=== PATIENT | female | born 1940 | race Caucasian/White ===

== ENCOUNTER 2022-06-10 12:45 | Inpatient (IN) ==
[2022-06-10] MEDS ORDERED: SODIUM CHLORIDE 0.9% 1000ML 1,000 ML IV ONE (13:27)
[2022-06-10] MEDS ORDERED: ONDANSETRON INJ 2 MG/ML 2 ML VIAL IV STA (13:27)
[2022-06-10] MEDS ORDERED: dexAMETHasone**PF** 10 MG/ML VIAL IV ONE (13:27)
--- NOTE | 2022-06-10 13:33 | Emergency Department Note ---
Impression & Plan COVID-19, Hypoxia, Generalized weakness ED Provider Note Name: JESUS PENN Age: 81 Sex: F Arrives Via: Ambulance Informant: Patient, EMS, son ED Provider: Braden Robles MD Chief Complaint: Weakness Impression: As per impressions above Medical Decision Makin-year-old female with a history of hypertension, dyslipidemia, anxiety/depression arrives for evaluation of worsening weakness and fatigue over the last 24 hours after being ill with COVID for the last 5 on arrival patient is mildly hypoxic with sats 90-92% on room air. Days. She gets significantly winded just with exertion. Patient notes weakness throughout the night and stumbling when trying to get up due to feeling so weak. She has no focal neurologic deficits, she has no headache, she has no altered mental status and I feel emergent neuroimaging not indicated. EKG without acute ischemia. Chest x- ray does not show significant abnormality. Labs are fortunately unremarkable Besides a mildly elevated D-dimer which is within her age range and would be expected be slightly elevated in the setting of COVID-19 which is positive. Patient was given IV dexamethasone given her hypoxia. Due to the hypoxia and positive COVID testing she will need hospitalization at this time and thus hospitalist consulted. We will hold off and defer CTA of chest to them given the D-dimer is within normal range for age. Prior Medical Record and Triage/Nursing Notes reviewed by Me Differentials:Reactive airway disease, pneumonia, pneumothorax, COPD, CHF, infections, cardiac ischemia, pulmonary embolism, musculoskeletal, gastrointestinal, as well as other pathologies. Vital Signs: reviewed and remarkable for hypoxia Interventions: Nasal cannula O2, Decadron 10 mg IV Labs:Reviewed and remarkable for mildly elevated D-dimer within patient's age range, positive COVID testing Imagin view chest x-ray no acute findings as per radiologist EKG:Indication shortness of breath. Sinus rhythm with sinus arrhythmia at 60 bpm with a QTC of 452. When compared to EKG from 01/09/2021 this is similar. There is no significant ectopy nor ischemia appreciated Consults:Patrice hospitalist Plan: Disposition: hospitalization Condition: Good History of Present Illness:81-year-old female arrives for evaluation of illness. Patient has been sick since essentially Tuesday/Tuesday. Notes she started feeling better yesterday but then overnight rapidly worsening. Patient states that initially symptoms included mild headaches, myalgias, chills, mildly productive cough. They are now progressed to include some shortness of breath diffuse generalized weakness and nausea and vomiting. She denies any specific abdominal pain, chest pain, back pain. She has no swelling in her legs or calves. She denies any syncope. She states the headache is minor and does not bother her very much right now. She has not been using any medications for this. Nothing makes it better or worse. She does note that last night she was so confused after getting up that she was walking into [place]. She denies any focal neurological deficits. She states the confusion has resolved. ROS: See above HPI for pertinent positives & negatives. A total of 10 systems reviewed and were otherwise negative. Past Medical History:Hypertension, dyslipidemia, anxiety/depression, PVCs Past Surgical History:Parotid surgery Family History:Noncontributory Social History:Retired lives at home non-smoker Home Medications:See Below Allergies:Sulfa, sertraline, venlafaxine, citalopram, nitrofurantoin Vitals:Blood Pressure: 197/80, Pulse 66, RR 16, T 36.9C, O2 92% on RA Physical Exam: GENERAL: Patient is tired/unwell appearing and in mild distress. EYES: No scleral icterus, unremarkable pupils. ENT: Mucous membranes dry, no nasal congestion. NECK: No masses appreciated, nomeningismus, trachea is midline. RESPIRATORY: Dyspnea/tachypnea with diffuse mild crackles no wheezing CARDIOVASCULAR: Regular rate rhythm no murmurs GASTROINTESTINAL: Abdomen soft, non-tender, no peritonitis.Bowel sounds positive.No masses appreciated. BACK: No midline tenderness, no CVA tenderness EXTREMITIES: Normal motion all extremities, no cyanosis, no edema. NEUROLOGIC: Alert and oriented, no acute motor or sensory deficits, no focal weakness, cranial nerves grossly intact. SKIN: No rash, no jaundice, no diaphoresis. PSYCH: Appropriate GCS: 15 ED Course: Times/Reassessments: Patient breathing comfortably on nasal cannula O2 and does feel significantly better. She does have some difficulty with ambulation when off oxygen. Braden Robles MD Past Med/Surg History Medical History (Updated 06/12/22 @ 09:52 by Braden Robles MD) Anxiety Arthritis COVID-19 HTN (hypertension) Hyperlipidemia Mitral valve disorder Surgical History Hx of parotidectomy Family History Other Myocardial infarction Social History Smoking Status: Never smoker Hx Alcohol Use: No Hx Substance Use: No Preferred Language: Yoruba Communication Ability: Effective Skoog Operator Required: No Beliefs That Will Affect Care: Adventist marital status: Current Living Situation: Alone current occupational status: retired Feels Safe at Home: Yes Safety Concerns: Feels Safe At This Time Assistive Devices: None Allergies Allergies Allergy/AdvReac Type Severity Reaction Status Date / Time Sulfa (Sulfonamide Allergy Intermediate "SULFA Verified 06/10/22 16:24 Antibiotics) DRUGS": RASH HOT sertraline AdvReac Severe HEART Verified 06/10/22 16:24 PALPITATIONS venlafaxine AdvReac Severe HEART Verified 06/10/22 16:24 PALPITATIONS citalopram AdvReac Intermediate HALLUCINATI Verified 06/10/22 16:24 ONS nitrofurantoin AdvReac Mild N/V Verified 06/10/22 16:24 Home Meds Home Medications Medication Instructions Recorded Confirmed atorvastatin 10 mg tablet 10 mg PO HS 08/22/18 06/10/22 calcium carbonate 500 mg-vitamin 1 tab PO BID 08/22/18 06/10/22 D3 5 mcg (200 unit) tablet (Calcium 500 + D) fexofenadine 180 mg tablet 180 mg PO DAILY 08/22/18 06/10/22 (Leticia Allergy) hydrochlorothiazide 25 mg tablet 6.25 mg PO DAILY 08/22/18 06/10/22 lorazepam 0.5 mg tablet 0.25 - 0.5 mg PO BID PRN Anxiety 08/22/18 06/10/22 omega [id number]-[id number]-fish oil 1,000 mg 1,000 mg PO DAILY 08/22/18 06/10/22 (120 mg-180 mg) capsule (Fish Oil) propranolol 60 mg capsule,24 60 mg PO DAILY 08/22/18 06/10/22 hr,extended release conjugated estrogens 0.625 mg/gram 1 applic vaginal 2XWK 01/09/21 06/10/22 vaginal cream (Premarin) lisinopril 2.5 mg tablet 1.25 mg PO DAILY 01/09/21 06/10/22 omeprazole 40 mg capsule,delayed 40 mg PO DAILY 06/10/22 06/10/22 release Results & Data (ED) Vital Signs Vital Signs - 24 hr 06/10/22 12:59 06/10/22 13:20 Temperature 36.9 C Temperature Source Oral Pulse Rate 66 Pulse Rhythm Regular Pulse Strength Normal Respiratory Rate 16 Respiratory Effort / Characteristics Non-Labored Spontaneous Respiratory Depth Normal Respiratory Pattern Regular Blood Pressure 197/80 H Blood Pressure Mean 119 Pulse Oximetry 94 92 Oxygen Delivery Method Room Air Room Air Sepsis Recent Fever Within 48 Hours No Sepsis New/Unexplained Change in Mental Status N/A Sepsis Action Taken by Nursing No Action Required Laboratory Data Result diagrams: 06/12/22 06:40 06/12/22 06:40 Lab Results 06/10/22 06/10/22 06/10/22 Range/Units 14:00 14:00 14:00 WBC 7.39 (4.8-10.8) K/ul RBC 4.61 (3.93-5.22) M/uL Hgb 13.4 (12.0-16.0) g/dl Hct 40.2 (34.1-44.9) % MCV 87.2 (80.0-100.0) fL MCH 29.1 (25.0-34.0) pg MCHC 33.3 (32.0-36.0) g/dL RDW Std Deviation 45.3 (36.4-46.3) fL RDW Coeff of Timmy 14.2 (11.5-14.5) % Plt Count 186 (130-400) K/uL MPV 10.5 (9.4-12.3) fL Immature Gran % (Auto) 0.3 % Neut % (Auto) 74.4 % Lymph % (Auto) 16.4 % [place] % (Auto) 8.5 % Eos % (Auto) 0.1 % Baso % (Auto) 0.3 % Neut # (Auto) 5.50 (1.4-6.5) K/uL Lymph # (Auto) 1.21 (1.2-3.4) K/uL [place] # (Auto) 0.63 (0.24-0.82) K/uL Eos # (Auto) 0.01 (0-0.50) K/uL Baso # (Auto) 0.02 (0-0.2) K/uL Immature Gran # (Auto) 0.02 (0.00-0.02) K/uL D-Dimer 710 H* (0-500) ug/L FEU Sodium (136-145) mmol/L Potassium (3.5-5.1) mmol/L Chloride (98-107) mmol/L Carbon Dioxide (21-32) mmol/L Anion Gap (3-11) BUN (6-23) mg/dl Creatinine (0.6-1.2) mg/dl Est Cr Clr Drug Dosing ml/min Est GFR ( Amer) ml/min Est GFR (Non-Af Amer) ml/min BUN/Creatinine Ratio (10-20) Glucose (70-99(Fasting)) mg/dl Lactate 0.7 (0.4-2.0) mmol/L Calcium (8.5-10.1) mg/dl Magnesium (1.7-2.4) mg/dl Total Bilirubin (0.2-1.0) mg/dl Direct Bilirubin (0-0.2) mg/dl AST (13-39) U/L ALT (7-52) U/L Alkaline Phosphatase (34-104) U/L Troponin I High Sens (0-14) pg/ml Total Protein (6.0-8.3) gm/dl Albumin (3.4-5.0) gm/dl Lipase (11-82) U/L Procalcitonin (0-0.5) ng/ml Urine Color Urine Appearance (Clear) Urine pH (4.5-7.5) Ur Specific [place] (1.000-1.030) Urine Protein (Negative) Urine Glucose (UA) (Negative) Urine Ketones (Negative) Urine Blood (Negative) Urine Nitrite (Negative) Urine Bilirubin (Negative) Urine Urobilinogen (Negative) Ur Leukocyte Esterase (Negative) SARS-CoV-2 (PCR) (Negative) 06/10/22 06/10/22 06/10/22 Range/Units 14:00 14:00 14:00 WBC (4.8-10.8) K/ul RBC (3.93-5.22) M/uL Hgb (12.0-16.0) g/dl Hct (34.1-44.9) % MCV (80.0-100.0) fL MCH (25.0-34.0) pg MCHC (32.0-36.0) g/dL RDW Std Deviation (36.4-46.3) fL RDW Coeff of Timmy (11.5-14.5) % Plt Count (130-400) K/uL MPV (9.4-12.3) fL Immature Gran % (Auto) % Neut % (Auto) % Lymph % (Auto) % [place] % (Auto) % Eos % (Auto) % Baso % (Auto) % Neut # (Auto) (1.4-6.5) K/uL Lymph # (Auto) (1.2-3.4) K/uL [place] # (Auto) (0.24-0.82) K/uL Eos # (Auto) (0-0.50) K/uL Baso # (Auto) (0-0.2) K/uL Immature Gran # (Auto) (0.00-0.02) K/uL D-Dimer (0-500) ug/L FEU Sodium 133 L (136-145) mmol/L Potassium 3.6 (3.5-5.1) mmol/L Chloride 98 (98-107) mmol/L Carbon Dioxide 28 (21-32) mmol/L Anion Gap 7 (3-11) BUN 10 (6-23) mg/dl Creatinine 0.64 (0.6-1.2) mg/dl Est Cr Clr Drug Dosing 74.2 ml/min Est GFR ( Amer) 98.4 ml/min Est GFR (Non-Af Amer) 84.9 ml/min BUN/Creatinine Ratio 15.6 (10-20) Glucose 107 H (70-99(Fasting)) mg/dl Lactate (0.4-2.0) mmol/L Calcium 9.3 (8.5-10.1) mg/dl Magnesium 1.9 (1.7-2.4) mg/dl Total Bilirubin 0.4 (0.2-1.0) mg/dl Direct Bilirubin 0.0 (0-0.2) mg/dl AST 18 (13-39) U/L ALT 13 (7-52) U/L Alkaline Phosphatase 75 (34-104) U/L Troponin I High Sens 7.3 (0-14) pg/ml Total Protein 7.5 (6.0-8.3) gm/dl Albumin 4.4 (3.4-5.0) gm/dl Lipase 21 (11-82) U/L Procalcitonin < 0.05 (0-0.5) ng/ml Urine Color Urine Appearance (Clear) Urine pH (4.5-7.5) Ur Specific [place] (1.000-1.030) Urine Protein (Negative) Urine Glucose (UA) (Negative) Urine Ketones (Negative) Urine Blood (Negative) Urine Nitrite (Negative) Urine Bilirubin (Negative) Urine Urobilinogen (Negative) Ur Leukocyte Esterase (Negative) SARS-CoV-2 (PCR) POSITIVE A* (Negative) 06/10/22 Range/Units 15:30 WBC (4.8-10.8) K/ul RBC (3.93-5.22) M/uL Hgb (12.0-16.0) g/dl Hct (34.1-44.9) % MCV (80.0-100.0) fL MCH (25.0-34.0) pg MCHC (32.0-36.0) g/dL RDW Std Deviation (36.4-46.3) fL RDW Coeff of Timmy (11.5-14.5) % Plt Count (130-400) K/uL MPV (9.4-12.3) fL Immature Gran % (Auto) % Neut % (Auto) % Lymph % (Auto) % [place] % (Auto) % Eos % (Auto) % Baso % (Auto) % Neut # (Auto) (1.4-6.5) K/uL Lymph # (Auto) (1.2-3.4) K/uL [place] # (Auto) (0.24-0.82) K/uL Eos # (Auto) (0-0.50) K/uL Baso # (Auto) (0-0.2) K/uL Immature Gran # (Auto) (0.00-0.02) K/uL D-Dimer (0-500) ug/L FEU Sodium (136-145) mmol/L Potassium (3.5-5.1) mmol/L Chloride (98-107) mmol/L Carbon Dioxide (21-32) mmol/L Anion Gap (3-11) BUN (6-23) mg/dl Creatinine (0.6-1.2) mg/dl Est Cr Clr Drug Dosing ml/min Est GFR ( Amer) ml/min Est GFR (Non-Af Amer) ml/min BUN/Creatinine Ratio (10-20) Glucose (70-99(Fasting)) mg/dl Lactate (0.4-2.0) mmol/L Calcium (8.5-10.1) mg/dl Magnesium (1.7-2.4) mg/dl Total Bilirubin (0.2-1.0) mg/dl Direct Bilirubin (0-0.2) mg/dl AST (13-39) U/L ALT (7-52) U/L Alkaline Phosphatase (34-104) U/L Troponin I High Sens (0-14) pg/ml Total Protein (6.0-8.3) gm/dl Albumin (3.4-5.0) gm/dl Lipase (11-82) U/L Procalcitonin (0-0.5) ng/ml Urine Color Yellow Urine Appearance Clear (Clear) Urine pH 7.5 (4.5-7.5) Ur Specific [place] 1.006 (1.000-1.030) Urine Protein Negative (Negative) Urine Glucose (UA) Negative (Negative) Urine Ketones Negative (Negative) Urine Blood Negative (Negative) Urine Nitrite Negative (Negative) Urine Bilirubin Negative (Negative) Urine Urobilinogen Negative (Negative) Ur Leukocyte Esterase Negative (Negative) SARS-CoV-2 (PCR) (Negative) Administered Medications Atorvastatin Calcium (Atorvastatin 10 Mg Tab) 10 mg PO HS JACEK Stop: 07/11/22 20:59 Last Admin: 06/11/22 20:17 Dose: 10 mg Documented By: PHILIP Fexofenadine HCl (Fexofenadine Hcl 180 Mg Tab) 180 mg PO QAM JACEK Stop: 07/11/22 11:59 Last Admin: 06/12/22 08:19 Dose: 180 mg Documented By: Admin: 06/11/22 13:58 Dose: 180 mg Documented By: DTT Guaifenesin (Guaifenesin 600 Mg Tabcr) 1,200 mg PO Q12 JACEK Stop: 07/10/22 20:59 Last Admin: 06/12/22 08:20 Dose: Not Given Documented By: Admin: 06/11/22 20:17 Dose: 1,200 mg Documented By: Admin: 06/11/22 08:36 Dose: 1,200 mg Documented By: Admin: 06/10/22 22:13 Dose: 1,200 mg Documented By: RD Hydrochlorothiazide (Hydrochlorothiazide 25 Mg Tab) 6.25 mg PO [facility] Stop: 07/12/22 08:59 Last Admin: 06/12/22 08:32 Dose: 6.25 mg Documented By: DTT Lisinopril (Lisinopril 2.5 Mg Tab) 1.25 mg PO [facility] Stop: 07/11/22 11:44 Last Admin: 06/12/22 08:19 Dose: 1.25 mg Documented By: Admin: 06/11/22 13:58 Dose: 1.25 mg Documented By: CRUZ Multivitamins/Minerals (Calcium 600mg + Vit D 400 Iu Tab) 1 tab PO BID [facility] Stop: 07/11/22 20:59 Last Admin: 06/11/22 20:17 Dose: 1 tab Documented By: PHILIP Pantoprazole Sodium (Pantoprazole 40 Mg Tab) 40 mg PO [facility] Stop: 07/11/22 11:59 Last Admin: 06/12/22 08:19 Dose: 40 mg Documented By: Admin: 06/11/22 13:57 Dose: 40 mg Documented By: CRUZ Propranolol HCl (Propranolol Hcl 60 Mg [place]) 60 mg PO [facility] Stop: 07/12/22 08:59 Last Admin: 06/12/22 08:19 Dose: 60 mg Documented By: CRUZ Discontinued Medications Amlodipine Besylate (Amlodipine Besylate 5 Mg Tab) 5 mg PO NOW ONE Stop: 06/11/22 18:55 Last Admin: 06/11/22 20:16 Dose: 5 mg Documented By: PHILIP Dexamethasone Sodium Phosphate (DexamethasonePf 10 Mg/Ml Vial) 10 mg IV NOW ONE Stop: 06/10/22 13:28 Last Admin: 06/10/22 13:56 Dose: 10 mg Documented By: CHANDRAKANT Sodium Chloride (Nss 1000ml) 1,000 mls @ 999 mls/hr IV .Q1H1M ONE Stop: 06/10/22 14:27 Last Infusion: 06/10/22 15:30 Dose: 0 mls/hr Documented By: Admin: 06/10/22 13:55 Dose: 999 mls/hr Documented By: CHANDRAKANT Ioversol (Optiray 300 500ml) 112 ml IV ONCE ONE Stop: 06/10/22 18:10 Last Admin: 06/10/22 18:13 Dose: 112 ml Documented By: RACHEL Ondansetron HCl (Ondansetron Inj 2 Mg/Ml 2 Ml Vial) 4 mg IV NOW STA Stop: 06/10/22 13:28 Last Admin: 06/10/22 13:56 Dose: 4 mg Documented By: CHANDRAKANT Propranolol HCl (Propranolol Hcl 60 Mg [place]) 60 mg PO QAM [facility] Stop: 07/11/22 11:44 Last Admin: 06/11/22 19:21 Dose: Not Given Documented By: PHILIP Propranolol HCl (Propranolol Hcl 60 Mg [place]) 30 mg PO QAM [facility] Stop: 07/11/22 11:54 Last Admin: 06/11/22 13:59 Dose: Not Given Documented By: DTT Discharge Plan Visit Data Chief Complaint: Weakness Stated Complaint: COVID pos, weakness ED Provider: Braden Robles Discharge Problem: COVID-19, Hypoxia, Generalized weakness Patient Disposition: Admitted As Inpatient Discharge Instructions Interventions: ED Discharge Assessment Last Done: 06/10/22 19:28
[2022-06-10 14:18] LABS: Basophils # (auto) 0.02 K/uL (0-0.2); Basophils % (auto) 0.3 %; Eosinophils # (auto) 0.01 K/uL (0-0.50); Eosinophils % (auto) 0.1 %; Hematocrit (blood only) 40.2 % (34.1-44.9); Hemoglobin 13.4 g/dl (12.0-16.0); Immature Granulocytes # (auto) 0.02 K/uL (0.00-0.02); Immature Granulocytes % (auto) 0.3 %; Lymphocytes # (auto) 1.21 K/uL (1.2-3.4); Lymphocytes % (auto) 16.4 %; Mean Corpuscular Hemoglobin 29.1 pg (25.0-34.0); Mean Corpuscular Hgb Conc 33.3 g/dL (32.0-36.0); Mean Corpuscular Volume 87.2 fL (80.0-100.0); Mean Platelet Volume 10.5 fL (9.4-12.3); Monocytes # (auto) 0.63 K/uL (0.24-0.82); Monocytes % (auto) 8.5 %; Neutrophils % (auto) 74.4 %; Platelet Count 186 K/uL (130-400); RDW Coefficient of Variation 14.2 % (11.5-14.5); RDW Standard Deviation 45.3 fL (36.4-46.3); Red Blood Count 4.61 M/uL (3.93-5.22); White Blood Count 7.39 K/ul (4.8-10.8)
[2022-06-10 14:30] LABS: D Dimer 710 ug/L FEU (0-500)
--- NOTE | 2022-06-10 14:33 | XRay Report ---
XR chest 1V portable CLINICAL HISTORY: weakness, nausea COMPARISON STUDY: Chest radiograph January 09, 2021. FINDINGS: Lung volumes are normal. No consolidation to suggest pneumonia. Linear retrocardiac opacity favors atelectasis. There is no pneumothorax or pleural effusion. Cardiac size is normal. Mediastina l contours are normal. There is no evidence for pulmonary edema. Left lateral chest/breast surgical c lips are incidentally noted. IMPRESSION: No acute cardiopulmonary findings. No change in appearance of the chest. ACT 112: Negative or not required by law. Electronically signed by: Contreras Porras M.D. 06/10/2022 2:32 PM
[2022-06-10 14:40] LABS: Albumin Level 4.4 gm/dl (3.4-5.0); BUN Creatinine Ratio 15.6 (10-20); Bilirubin,Total 0.4 mg/dl (0.2-1.0); Calcium 9.3 mg/dl (8.5-10.1); Creatinine Clr Calc Pharmacy 74.2 ml/min; Est GFR (African American) 98.4 ml/min; Est GFR (Non-African American) 84.9 ml/min; Magnesium 1.9 mg/dl (1.7-2.4); Potassium 3.6 mmol/L (3.5-5.1); Total Protein 7.5 gm/dl (6.0-8.3)
[2022-06-10 14:44] LABS: Troponin I High Sensitivity 7.3 pg/ml (0-14)
[2022-06-10 15:50] LABS: Appearance Urine Clear (Clear); Bilirubin Urine Negative (Negative); Blood Urine Negative (Negative); Color Urine Yellow; Glucose Urine UA Negative (Negative); Ketones Urine Negative (Negative); Leukocyte Esterase Urine Negative (Negative); Nitrite Urine Negative (Negative); Protein Urine Negative (Negative); Specific Gravity Urine 1.006 (1.000-1.030); Urobilinogen Urine Negative (Negative); pH Urine 7.5 (4.5-7.5)
--- NOTE | 2022-06-10 15:57 | History & Physical Report ---
Date of Service June 10, 2022 Assessment & Plan (1) COVID-19: (2) Hypertension: (3) Hyperlipidemia: (4) Anxiety and depression: Plan Ms.. Castillo is a 81 year old female who presented to the [facility] for 'illness'. Patient reports that she started feeling MYERS, malaise, sore throat, starting on Tuesday. She started to have dizziness and nausea that began yesterday. She felt like she was dehydrated and drank some Gatorade. This morning, she had to hold onto something to get herself to the bathroom. She reports also having decreased appetite. Patient denies MYERS, CP, palpitations, SOB, vomiting, diarrhea. She did have one episode of vomiting in the ED. Pt d- dimer was 770 in the ED. Patient has an additional PMH that includes: HTN, HLD, anxiety and depression. Patient will be admitted under medicine service for further evaluation and management. COVID-19: Vaccinated and received booster x1 Symptoms x5 days with some SOB Procalcitonin negative CRP ordered for AM; depending on results and progress; consider additional covid tx. Creatinine 0.64 Mucinex ordered Decadron 10 mg given in ED ISB ordered CXR negative; repeat in AM D-Dimer 710: CTA ordered HTN: Takes Lisinopril H/O Mitral Valve Prolapse: Stable; Continue Propanolol Does not follow with Cardiology Hyperlipidemia: Stable; Continue Atorvastatin Anxiety and Depression: Takes Lorazepam; continue PRN Disposition: PCP: Dr. Pitt Code Status: Full Code VTE Prophylaxis: Heparin SQ Contact: Malik son: [phone] [facility] Pt lives alone at home in a two story home with bedroom and bathroom access on one floor. History of Present Illness Chief Complaint: cough Primary Care Provider: Kassidy Pitt DO Ms. Castillo is a 81 year old female who presented to the [facility] for 'illness'. Patient reports that she started feeling MYERS, malaise, sore throat, starting on Tuesday. She started to have dizziness and nausea that began yesterday. She felt like she was dehydrated and drank some Gatorade. This morning, she had to hold onto something to get herself to the bathroom. She reports also having decreased appetite. Patient denies MYERS, CP, palpitations, SOB, vomiting, diarrhea. She did have one episode of vomiting in the ED. Pt d- dimer was 770 in the ED. Patient has an additional PMH that includes: HTN, HLD, anxiety and depression. Patient will be admitted under medicine service for further evaluation and management. Allergies Allergy/AdvReac Type Severity Reaction Status Date / Time Sulfa (Sulfonamide Allergy Intermediate "SULFA Verified 06/10/22 16:24 Antibiotics) DRUGS": RASH HOT sertraline AdvReac Severe HEART Verified 06/10/22 16:24 PALPITATIONS venlafaxine AdvReac Severe HEART Verified 06/10/22 16:24 PALPITATIONS citalopram AdvReac Intermediate HALLUCINATI Verified 06/10/22 16:24 ONS nitrofurantoin AdvReac Mild N/V Verified 06/10/22 16:24 Home Medications Medication Instructions Recorded Confirmed Type atorvastatin 10 mg tablet 10 mg PO HS 08/22/18 06/10/22 History calcium carbonate 500 mg-vitamin 1 tab PO BID 08/22/18 06/10/22 History D3 5 mcg (200 unit) tablet (Calcium 500 + D) fexofenadine 180 mg tablet 180 mg PO DAILY 08/22/18 06/10/22 History (Leticia Allergy) hydrochlorothiazide 25 mg tablet 6.25 mg PO DAILY 08/22/18 06/10/22 History lorazepam 0.5 mg tablet 0.25 - 0.5 mg PO BID PRN Anxiety 08/22/18 06/10/22 History omega 6-aiz-arc-fish oil 1,000 mg 1,000 mg PO DAILY 08/22/18 06/10/22 History (120 mg-180 mg) capsule (Fish Oil) propranolol 60 mg capsule,24 60 mg PO DAILY 08/22/18 06/10/22 History hr,extended release conjugated estrogens 0.625 mg/gram 1 applic vaginal 2XWK 01/09/21 06/10/22 History vaginal cream (Premarin) lisinopril 2.5 mg tablet 1.25 mg PO DAILY 01/09/21 06/10/22 History omeprazole 40 mg capsule,delayed 40 mg PO DAILY 06/10/22 06/10/22 History release Past Med/Surg History Medical History (Updated 06/10/22 @ 16:18 by CHEYANNE Wynn) Anxiety Arthritis COVID-19 HTN (hypertension) Hyperlipidemia Mitral valve disorder Surgical History Hx of parotidectomy Family History Other Myocardial infarction Social History Smoking Status: Never smoker Hx Alcohol Use: No Hx Substance Use: No Communication Ability: Effective Application Tester Required: No Beliefs That Will Affect Care: None marital status: Current Living Situation: Alone current occupational status: retired Feels Safe at Home: Yes Assistive Devices: None Review of Systems Review of Systems: Neuro: (-) Falls, trauma, slurred speech HEENT: (-) MYERS, dizziness, dysphagia, visual or auditory changes CV: (-) CP, palpitations, swelling Resp: (-) SOB GI: (-) appetite changes, N/V/D, bowel changes : (-) urinary changes Skin: (-) rashes Psych: (-) anxiety, depression Physical Exam Physical Exam: Neuro: AAOx4, PERRLA, no aphagia, memory changes, CNII-XII grossly intact HEENT: head normocephalic, moist mucus membranes CV: S1/S2, (-) M/G/R, (-) edema, cap refill < 3 seconds Resp: Lungs CTA in all santos. On RA GI: Abdomen S/NT/ND, Ax4 bowel sounds, (-) CVA tenderness Musculoskeletal: 5/5 B/L UE strength, 5/5 B/L LE strength. No gait disturbance Skin: (-) rashes , (-) erythema. Psych: euthymic mood Results & Data Results & Data ([facility]) Vital Signs (Past 12 Hours) Vital Signs Temp Pulse Resp BP Pulse Ox O2 Del Method O2 Flow Rate 06/10/22 14:11 92 Nasal Cannula 0 06/10/22 13:20 92 Room Air 06/10/22 12:59 36.9 C 66 16 197/80 H 94 Room Air Laboratory Results Short CBC 06/10/22 Range/Units 14:00 WBC 7.39 (4.8-10.8) K/ul Hgb 13.4 (12.0-16.0) g/dl Hct 40.2 (34.1-44.9) % Plt Count 186 (130-400) K/uL BMP 06/10/22 14:00 Sodium 133 L Potassium 3.6 Chloride 98 Carbon Dioxide 28 BUN 10 Creatinine 0.64 Glucose 107 H Calcium 9.3 Liver Function 06/10/22 Range/Units 14:00 Total Bilirubin 0.4 (0.2-1.0) mg/dl Direct Bilirubin 0.0 (0-0.2) mg/dl AST 18 (13-39) U/L ALT 13 (7-52) U/L Alkaline Phosphatase 75 (34-104) U/L Albumin 4.4 (3.4-5.0) gm/dl Urine 06/10/22 Range/Units 15:30 Urine Color Yellow Urine Appearance Clear (Clear) Urine pH 7.5 (4.5-7.5) Ur Specific [place] 1.006 (1.000-1.030) Urine Protein Negative (Negative) Urine Glucose (UA) Negative (Negative) Diagnostic Findings Chest X-Ray 06/10/22 13:28 XR chest 1V portable CLINICAL HISTORY: weakness, nausea COMPARISON STUDY: Chest radiograph January 09, 2021. FINDINGS: Lung volumes are normal. No consolidation to suggest pneumonia. Linear retrocardiac opacity favors atelectasis. There is no pneumothorax or pleural effusion. Cardiac size is normal. Mediastinal contours are normal. There is no evidence for pulmonary edema. Left lateral chest/breast surgical clips are incidentally noted. IMPRESSION: No acute cardiopulmonary findings. No change in appearance of the chest. ACT 112: Negative or not required by law. Electronically signed by: Contreras Porras M.D. 06/10/2022 2:32 PM Code Status & VTE Plan VTE Prophylaxis Plan VTE Prophylaxis will be ordered: Yes Supervising Physician Co-Signing Physician Notes Attending addendum: The patient was seen and examined in emergency room She has been complaining of epigastric discomfort nausea with vomiting, 1 epi sode of diarrhea in the morning and generalized weakness for a day or 2 Denies any fever and or chills, any shortness of breath, any chest pain and/or palpitation On examination Lying in bed comfortably Hemodynamically stable with blood pressure on the upper side at 152/80 Chestclear to auscultate bilaterally HeartS1-S2, regular Abdomenmildly tender epigastrium Extremitiesno edema CNSalert, awake and oriented x3 Her admission labs, EKG and imaging studies reviewed Noted to be COVID-positive with mild dehydration She has been COVID vaccinated with booster Received Decadron 10 mg and will continue Agree with assessment and plan as outlined above by Siomara Hallman (1) Hypertension Hypertension type: essential hypertension Qualified Code(s): I10 - Essential (primary) hypertension
--- NOTE | 2022-06-10 17:59 | Electrocardiogram Report ---
Test Reason : Blood Pressure : / mmHG Vent. Rate : 060 BPM Atrial Rate : 060 BPM P-R Int : 200 ms QRS Dur : 118 ms QT Int : 452 ms P-R-T Axes : 066 -19 015 degrees QTc Int : 452 ms Sinus rhythm with marked sinus arrhythmia Left ventricular hypertrophy with QRS widening and repolarization abnormality Abnormal ECG When compared with ECG of 09-JAN-2021 02:22, No significant change was found Confirmed by Abiodun Iglesias ([id number]) on 06/10/2022 5:59:03 PM Referred By: REFERRED SELF Confirmed By:Jose Francisco Iglesias
[2022-06-10] MEDS ORDERED: OPTIRAY 300 500mL IV ONE (18:09)
--- NOTE | 2022-06-10 18:32 | CT Scan Report ---
CHEST CTA for PULMONARY ARTERIES CT DOSE: 271.10 mGy.cm HISTORY: Shortness of breath. Covid positive. TECHNIQUE: Multiaxial CT images of the chest were performed following the intravenous administration of contrast to evaluate the pulmonary arteries. Maximal intensity projection images were also obtaine d. A dose lowering technique was utilized adhering to the principles of ALARA. COMPARISON STUDY: None. FINDINGS: Limited views of the upper abdomen demonstrate a normal liver, spleen, and adrenal glands. There is mild elevation of the right hemidiaphragm. No pleural or pericardial effusions. The heart is top normal in size. Normal thyroid gland. Surgical clips noted within the left upper chest wall. Nor mal caliber esophagus. No mediastinal or hilar lymphadenopathy. Mild calcified plaque within the thor acic aorta. No evidence for an aortic dissection. The ascending thoracic aorta measures up to 4 cm in diameter. There is mild respiratory motion artifact. However, no definite filling defects within the pulmonary arteries to suggest a pulmonary embolus. No suspicious lytic or blastic osseous lesions. T he central airways are patent. No pneumothorax. A few bibasilar linear densities consistent with subs egmental atelectasis. A 3 mm nodule along the left major fissure. This is likely benign. No suspiciou s pulmonary nodules identified. No focal lung consolidations to suggest pneumonia. IMPRESSION: 1. No evidence for a pulmonary embolus. 2. Mild aneurysmal dilatation of the ascending thoracic aorta measuring up to 4 cm in diameter. No ev idence for an aortic dissection. ACT 112: Negative or not required by law. Electronically signed by: Presley Diaz M.D. 06/10/2022 6:30 PM
[2022-06-10] MEDS: guaiFENesin 600 MG TABCR PO SCH (22:13)
[2022-06-11 06:48] LABS: Hematocrit (blood only) 37.3 % (34.1-44.9); Hemoglobin 12.7 g/dl (12.0-16.0); Mean Corpuscular Hemoglobin 29.5 pg (25.0-34.0); Mean Corpuscular Volume 86.5 fL (80.0-100.0); Mean Platelet Volume 10.1 fL (9.4-12.3); Platelet Count 185 K/uL (130-400); Red Blood Count 4.31 M/uL (3.93-5.22); White Blood Count 5.35 K/ul (4.8-10.8)
[2022-06-11 07:29] LABS: BUN Creatinine Ratio 19.7 (10-20); C Reactive Protein 3.49 mg/dl (0-0.5); Calcium 9.2 mg/dl (8.5-10.1); Creatinine Clr Calc Pharmacy 71.1 ml/min; Est GFR (African American) 97.4 ml/min; Potassium 3.6 mmol/L (3.5-5.1)
[2022-06-11] MEDS: guaiFENesin 600 MG TABCR PO SCH ×2 (08:36→20:17)
[2022-06-11] MEDS ORDERED: PROPRANOLOL HCL 60 MG LA CAP PO SCH ×2 (11:45→11:55)
[2022-06-11] MEDS ORDERED: ONDANSETRON INJ 2 MG/ML 2 ML VIAL IV PRN (11:46)
[2022-06-11] MEDS ORDERED: ACETAMINOPHEN 325 MG TAB PO PRN (11:46)
[2022-06-11] MEDS ORDERED: BENZONATATE 100 MG CAPSULE PO PRN (11:55)
--- NOTE | 2022-06-11 12:00 | Hospitalist Progress Note ---
Date of Service June 11, 2022 Assessment & Plan (1) COVID-19: (2) Hypertension: (3) Hyperlipidemia: (4) Anxiety and depression: Plan 81 year old female who presented to the [facility] for 'illness', MYERS, malaise, sore throat, dizziness, anorexia and nausea COVID-19 infection: Vaccinated and received booster x1 Symptoms x5 days Procalcitonin negative CRP 3.49 CXR was negative for any infiltrates D-Dimer 710: CT PE negative for PE Currently on room air No need for COVID specific therapies. Patient not interested in Paxlovid Continue supportive care HTN: Takes Lisinopril 1.25mg daily, propranolol 60mg and HCTZ 6.25 mg at home BP poorly controlled today Continue lisinopril 1.25mg. Propranolol dose reduced to 30mg for now due to bradycardia. Will monitor Check orthostatics H/O Mitral Valve Prolapse: Does not follow with Cardiology Hyperlipidemia: Stable Continue Atorvastatin Anxiety Reports she takes lorazepam prn but has not needed it for sometime PDMP reviewed. Last fill was in 03/31 Disposition: PCP: Dr. Pitt Code Status: Full Code VTE Prophylaxis: Heparin SQ Contact: Malik son: [phone] Plan to [place]. Pt lives alone at home in a two story home with bedroom and bathroom access on one floor. Admission and Anticipated Discharge Date Admission Date: June 10, 2022 Subjective Patient seen and examined. Reports improved cough, dry. Reports generalized weakness. Headache is improved Denies any shortness of breath. Reports nausea, dizziness. Reports dizziness is occasionally when walking around Denies any vomiting. Denies chest pain. Reported some palpitation earlier. Denied any abd pain, diarrhea, constipation. Denied dysuria, freq, urgency Denied fevers, chills Review of Systems Review of Systems: All systems reviewed & are unremarkable except as noted in Subjective Physical Exam Constitutional: + well hydrated; no acute distress Eyes: PERRL, conjunctivae normal, anicteric sclerae ENMT: external ear and nose normal, oropharynx normal Respiratory: normal respiratory effort, lungs clear to auscultation Cardiovascular: Rate/Rhythm: regular rhythm and + bradycardic S1 S2 Gastrointestinal (Abdomen): normal bowel sounds, soft, nontender, no hepatosplenomegaly Musculoskeletal: No pedal edema Neurologic: PERRL, EOMI, accommodation nl, no face palsy, no dysarthria Psychiatric: A+Ox3, euthymic affect Results & Data Results & Data ([facility]) Vital Signs (Past 12 Hours) Vital Signs Temp Pulse Resp BP Pulse Ox O2 Del Method O2 Flow Rate 06/11/22 11:57 58 L 179/79 H 06/11/22 09:33 Room Air 06/11/22 08:36 36.6 C 57 L 16 158/76 H 98 Room Air 06/11/22 03:41 37.2 C 62 18 126/54 L 98 Nasal Cannula 2 Laboratory Results Abnormal lab results 06/10/22 06/10/22 06/10/22 Range/Units 14:00 14:00 14:00 D-Dimer 710 H* (0-500) ug/L FEU Sodium 133 L (136-145) mmol/L Glucose 107 H (70-99(Fasting)) mg/dl C-Reactive Protein (0-0.5) mg/dl SARS-CoV-2 (PCR) POSITIVE A* (Negative) 06/11/22 Range/Units 06:35 D-Dimer (0-500) ug/L FEU Sodium (136-145) mmol/L Glucose 118 H (70-99(Fasting)) mg/dl C-Reactive Protein 3.49 H (0-0.5) mg/dl SARS-CoV-2 (PCR) (Negative) (1) Hypertension Hypertension type: essential hypertension Qualified Code(s): I10 - Essential (primary) hypertension
[2022-06-11] MEDS: PANTOprazole 40 MG TAB PO SCH (13:57)
[2022-06-11] MEDS: lisinopril 2.5 MG TAB PO SCH (13:58)
[2022-06-11] MEDS: FEXOFENADINE HCL 180 MG TAB PO SCH (13:58)
[2022-06-11] MEDS ORDERED: amLODIPine BESYLATE 5 MG TAB PO ONE (18:54)
[2022-06-11] MEDS: ATORVASTATIN 10 MG TAB PO SCH (20:17)
[2022-06-11] MEDS: CALCIUM 600MG + VIT D 400 IU TAB PO SCH (20:17)
[2022-06-12 07:23] LABS: Hemoglobin 13.5 g/dl (12.0-16.0); Mean Corpuscular Hemoglobin 29.4 pg (25.0-34.0); Mean Corpuscular Hgb Conc 34.6 g/dL (32.0-36.0); Mean Platelet Volume 10.3 fL (9.4-12.3); Platelet Count 207 K/uL (130-400); RDW Standard Deviation 43.5 fL (36.4-46.3); Red Blood Count 4.59 M/uL (3.93-5.22)
[2022-06-12 07:49] LABS: BUN Creatinine Ratio 18.3 (10-20); C Reactive Protein 1.64 mg/dl (0-0.5); Calcium 9.2 mg/dl (8.5-10.1); Chol HDL Ratio 2.7 (0-5); Creatinine Clr Calc Pharmacy 66.2 ml/min; Est GFR (African American) 93.9 ml/min; Magnesium 1.8 mg/dl (1.7-2.4); Phosphorus 2.8 mg/dl (2.5-4.9); Potassium 3.4 mmol/L (3.5-5.1)
[2022-06-12] MEDS: lisinopril 2.5 MG TAB PO SCH (08:19)
[2022-06-12] MEDS: FEXOFENADINE HCL 180 MG TAB PO SCH (08:19)
[2022-06-12] MEDS: PANTOprazole 40 MG TAB PO SCH (08:19)
[2022-06-12] MEDS: guaiFENesin 600 MG TABCR PO SCH ×2 (08:20→20:06)
[2022-06-12] MEDS: hydroCHLOROthiazide 25 MG TAB PO SCH (08:32)
[2022-06-12] MEDS ORDERED: PROPRANOLOL HCL 60 MG LA CAP PO SCH (09:00)
[2022-06-12] MEDS: CALCIUM 600MG + VIT D 400 IU TAB PO SCH ×2 (10:44→20:10)
[2022-06-12] MEDS ORDERED: POTASSIUM CHLORIDE CRTAB 20 MEQ TABCR PO STA (11:11)
--- NOTE | 2022-06-12 12:12 | Hospitalist Progress Note ---
Date of Service June 12, 2022 Assessment & Plan (1) COVID-19: (2) Hypertension: (3) Hyperlipidemia: (4) Anxiety and depression: Plan 81 year old female who presented to the [facility] for 'illness', MYERS, malaise, sore throat, dizziness, anorexia and nausea COVID-19 infection: Vaccinated and received booster x1 Symptoms x5 days Procalcitonin negative CRP 3.49--> 1.64 CXR was negative for any infiltrates D-Dimer 710: CT PE negative for PE Currently on room air No need for COVID specific therapies. Patient not interested in Paxlovid Continue supportive care HTN: Takes Lisinopril 1.25mg daily, propranolol 60mg and HCTZ 6.25 mg at home BP better controlled today However, due to persistent bradycardia, will stop propranolol Increase lisinopril to 2.5mg daily. Continue Home HCTZ There is room to go up on current antihypertensives. Monitor H/O Mitral Valve Prolapse: Does not follow with Cardiology Hyperlipidemia: Stable Continue Atorvastatin Anxiety Reports she takes lorazepam prn but has not needed it for sometime PDMP reviewed. Last fill was in 03/31 Disposition: PCP: Dr. Pitt Code Status: Full Code VTE Prophylaxis: Heparin SQ Contact: Malik son: [phone] Possible dc tomorrow Admission and Anticipated Discharge Date Admission Date: June 10, 2022 Subjective Patient seen and examined. Reports cough and weakness are improving Reports dizziness is present but better than yesterday Denied headache Denies nausea, vomiting. Denies chest pain. Reported some palpitation earlier. Denied any abd pain, diarrhea, constipation. Denied dysuria, freq, urgency Denied fevers, chills Physical Exam Constitutional: + well hydrated; no acute distress Eyes: PERRL, conjunctivae normal, anicteric sclerae ENMT: external ear and nose normal, oropharynx normal Respiratory: normal respiratory effort, lungs clear to auscultation Cardiovascular: Rate/Rhythm: regular rhythm and + bradycardic S1 S2 Gastrointestinal (Abdomen): normal bowel sounds, soft, nontender, no hepatosplenomegaly Musculoskeletal: no cyanosis or clubbing, extremities motor strength 5/5 Neurologic: PERRL, EOMI, accommodation nl, no face palsy, no dysarthria Psychiatric: A+Ox3, euthymic affect Results & Data Results & Data ([facility]) Vital Signs (Past 12 Hours) Vital Signs Temp Pulse Pulse Resp BP BP Pulse Ox 06/12/22 11:54 36.5 C 56 L 19 165/81 H 96 06/12/22 09:06 48 L 06/12/22 07:41 36.5 C 58 L 17 154/75 H 96 06/12/22 03:00 36.8 C 61 18 159/72 H 95 O2 Del Method 06/12/22 11:54 06/12/22 09:06 06/12/22 07:41 Room Air 06/12/22 03:00 Room Air Laboratory Results Abnormal lab results 06/12/22 Range/Units 06:40 Potassium 3.4 L (3.5-5.1) mmol/L C-Reactive Protein 1.64 H (0-0.5) mg/dl (1) Hypertension Hypertension type: essential hypertension Qualified Code(s): I10 - Essential (primary) hypertension
[2022-06-12] MEDS ORDERED: POLYETHYLENE (MIRALAX) 17 GM PACK PO PRN (16:55)
[2022-06-12] MEDS: ATORVASTATIN 10 MG TAB PO SCH (20:10)
[2022-06-12] MEDS ORDERED: LORazepam 0.5 MG TAB PO PRN (20:13)
[2022-06-13 06:34] LABS: Hematocrit (blood only) 39.3 % (34.1-44.9); Hemoglobin 13.6 g/dl (12.0-16.0); Mean Corpuscular Hemoglobin 29.6 pg (25.0-34.0); Mean Corpuscular Hgb Conc 34.6 g/dL (32.0-36.0); Mean Corpuscular Volume 85.6 fL (80.0-100.0); Mean Platelet Volume 10.1 fL (9.4-12.3); Platelet Count 214 K/uL (130-400); RDW Standard Deviation 43.9 fL (36.4-46.3); Red Blood Count 4.59 M/uL (3.93-5.22); White Blood Count 7.23 K/ul (4.8-10.8)
[2022-06-13 06:57] LABS: BUN Creatinine Ratio 19.7 (10-20); Calcium 9.4 mg/dl (8.5-10.1); Creatinine Clr Calc Pharmacy 61.8 ml/min; Est GFR (African American) 86.5 ml/min; Est GFR (Non-African American) 74.6 ml/min; Potassium 3.7 mmol/L (3.5-5.1)
[2022-06-13] MEDS: FEXOFENADINE HCL 180 MG TAB PO SCH (08:08)
[2022-06-13] MEDS: hydroCHLOROthiazide 25 MG TAB PO SCH (08:08)
[2022-06-13] MEDS: CALCIUM 600MG + VIT D 400 IU TAB PO SCH (08:08)
[2022-06-13] MEDS: PANTOprazole 40 MG TAB PO SCH (08:09)
[2022-06-13] MEDS: guaiFENesin 600 MG TABCR PO SCH (08:09)
[2022-06-13] MEDS ORDERED: lisinopril 2.5 MG TAB PO SCH (09:00)
--- NOTE | 2022-06-13 13:22 | Discharge Summary ---
Date of Service June 13, 2022 Admission HPI Per Admitting Provider Ms. Castillo is a 81 year old female who presented to the [facility] for 'illness'. Patient reports that she started feeling MYERS, malaise, sore throat, starting on Tuesday. She started to have dizziness and nausea that began yesterday. She felt like she was dehydrated and drank some Gatorade. This morning, she had to hold onto something to get herself to the bathroom. She reports also having decreased appetite. Patient denies MYERS, CP, palpitations, SOB, vomiting, diarrhea. She did have one episode of vomiting in the ED. Pt d- dimer was 770 in the ED. Patient has an additional PMH that includes: HTN, HLD, anxiety and depression. Patient will be admitted under medicine service for further evaluation and management. Admission Exam Per Admitting Provider Neuro: AAOx4, PERRLA, no aphagia, memory changes, CNII-XII grossly intact HEENT: head normocephalic, moist mucus membranes CV: S1/S2, (-) M/G/R, (-) edema, cap refill < 3 seconds Resp: Lungs CTA in all santos. On RA GI: Abdomen S/NT/ND, Ax4 bowel sounds, (-) CVA tenderness Musculoskeletal: 5/5 B/L UE strength, 5/5 B/L LE strength. No gait disturbance Skin: (-) rashes , (-) erythema. Psych: euthymic mood Principal Diagnosis COVID 19 infection Dizziness Bradycardia Discharge Exam Constitutional + well hydrated; no acute distress Eyes PERRL, conjunctivae normal, anicteric sclerae ENMT external ear and nose normal, oropharynx normal Respiratory normal respiratory effort, lungs clear to auscultation Cardiovascular Rate/Rhythm: regular rhythm and + bradycardic S1 S2 Gastrointestinal (Abdomen) normal bowel sounds, soft, nontender, no hepatosplenomegaly Musculoskeletal no cyanosis or clubbing, extremities motor strength 5/5 Neurologic PERRL, EOMI, accommodation nl, no face palsy, no dysarthria Psychiatric A+Ox3, euthymic affect Discharge Data Allergies Allergy/AdvReac Type Severity Reaction Status Date / Time Sulfa (Sulfonamide Allergy Intermediate "SULFA Verified 06/10/22 16:24 Antibiotics) DRUGS": RASH HOT sertraline AdvReac Severe HEART Verified 06/10/22 16:24 PALPITATIONS venlafaxine AdvReac Severe HEART Verified 06/10/22 16:24 PALPITATIONS citalopram AdvReac Intermediate HALLUCINATI Verified 06/10/22 16:24 ONS nitrofurantoin AdvReac Mild N/V Verified 06/10/22 16:24 Consultations 06/10/22 15:52 ED Decision to Admit Stat Ordered Studies 06/10/22 16:25 CT angio chest PE protocol Stat Limited views of the upper abdomen demonstrate a normal liver, spleen, and adrenal glands. There is mild elevation of the right hemidiaphragm. No pleural or pericardial effusions. The heart is top normal in size. Normal thyroid gland. Surgical clips noted within the left upper chest wall. Normal caliber esophagus. No mediastinal or hilar lymphadenopathy. Mild calcified plaque within the thoracic aorta. No evidence for an aortic dissection. The ascending thoracic aorta measures up to 4 cm in diameter. There is mild respiratory motion artifact. However, no definite filling defects within the pulmonary arteries to suggest a pulmonary embolus. No suspicious lytic or blastic osseous lesions. The central airways are patent. No pneumothorax. A few bibasilar linear densities consistent with subsegmental atelectasis. A 3 mm nodule along the left major fissure. This is likely benign. No suspicious pulmonary nodules identified. No focal lung consolidations to suggest pneumonia. IMPRESSION: 1. No evidence for a pulmonary embolus. 2. Mild aneurysmal dilatation of the ascending thoracic aorta measuring up to 4 cm in diameter. No evidence for an aortic dissection. Hospital Course (1) COVID-19: (2) Hypertension: (3) Hyperlipidemia: (4) Anxiety and depression: Plan 81 year old female who presented to the [facility] for 'illness', MYERS, malaise, sore throat, dizziness, anorexia and nausea COVID-19 infection: Vaccinated and received booster x1 Symptoms x5 days Procalcitonin negative CRP 3.49--> 1.64 CXR was negative for any infiltrates D-Dimer 710: CT PE negative for PE On room air. No need for COVID specific therapies. Patient not interested in Paxlovid Symptoms improving. Dizziness much improved. Anorexia resolved HTN: Reports she takes Lisinopril 1.25mg daily, propranolol 60mg and HCTZ 6.25 mg at home Had persistent bradycardia with enrique in 40s. Home propranolol discontinued for now Lisinopril increased to 2.5mg for better BP control Patient advised to keep a BP and HR log for PCP at home to aid with adjustments fo med H/O Mitral Valve Prolapse: Hyperlipidemia: Continue Atorvastatin Anxiety Reports she takes lorazepam prn but has not needed it for sometime PDMP reviewed. Last fill was in 03/31 Total Time Total Time Spent Total Time Spent (In Minutes): 35 Total Time Includes: Examination of the Patient, Discharge Planning and Medication Reconciliation Discharge Plan Discharge Items Patient Disposition: Home - Self-Care Reason For Visit: COUGH Discharge Diagnosis: COVID 19 infection Dizziness Bradycardia (low heart rate) Activity: Resume your previous activity Non-emergency contact: Primary Care Provider Call non-emergency contact if: you have any medication questions and your symptoms worsen Follow-up/Referrals: Kassidy Pitt, [Primary Care Provider] - Diet: Heart Healthy Olvin Attending Provider Instructions: Mrs Castillo You came to the hospital complaining of feeling unwell, cough and dizziness You were evaluated and noted to have COVID 19 infection. You also had low heart rate during your hospital stay. Please stop taking your Propanolol for now until follow up with your doctors. Your lisinopril was increased to 2.5mg daily Continue taking your other medications as prescribed. Keep a log of your home blood pressure and heart rate measurements for your Primary Doctor. Please adhere to home isolation instructions for COVID as we discussed for a total of 10 days from your admission or till negative test. It was a pleasure taking care of you. Olvin Green Plumber Provider Instructions: Home Isolation COVID-19 Instructions The following information about Home Isolation is from the CDC Website: https://www.cdc.gov/coronavirus/2019-ncov/hcp/jcbkbwdu-bjuydyv-rqnktl.html Stay home except to get medical care People who are mildly ill with COVID-19 are able to isolate at home during their illness. You should restrict activities outside your home, except for getting medical care. Do not go to work, school, or public areas. Avoid using public transportation, ride-sharing, or taxis. Separate yourself from other people and animals in your home People: As much as possible, you should stay in a specific room and away from other people in your home. Also, you should use a separate bathroom, if available. Animals: You should restrict contact with pets and other animals while you are sick with COVID-19, just like you would around other people. Although there have not been reports of pets or other animals becoming sick with COVID-19, it is still recommended that people sick with COVID-19 limit contact with animals until more information is known about the virus. When possible, have another member of your household care for your animals while you are sick. If you are sick with COVID-19, avoid contact with your pet, including petting, snuggling, being kissed or licked, and sharing food. If you must care for your pet or be around animals while you are sick, wash your hands before and after you interact with pets and wear a face mask. Call ahead before visiting your doctor If you have a medical appointment, call the healthcare provider and tell them that you have or may have COVID-19. This will help the healthcare providers office take steps to keep other people from getting infected or exposed. Wear a face mask You should wear a face mask when you are around other people (e.g., sharing a room or vehicle) or pets and before you enter a healthcare providers office. If you are not able to wear a face mask (for example, because it causes trouble breathing), then people who live with you should not stay in the same room with you, or they should wear a face mask if they enter your room. Cover your coughs and sneezes Cover your mouth and nose with a tissue when you cough or sneeze. Throw used tissues in a lined trash can. Immediately wash your hands with soap and water for at least 20 seconds or, if soap and water are not available, clean your hands with an alcohol-based hand steel shot header operator that contains at least 60% alcohol. Clean your hands often Wash your hands often with soap and water for at least 20 seconds, especially after blowing your nose, coughing, or sneezing; going to the bathroom; and before eating or preparing food. If soap and water are not readily available, use an alcohol-based hand steel shot header operator with at least 60% alcohol, covering all surfaces of your hands and rubbing them together until they feel dry. Soap and water are the best option if hands are visibly dirty. Avoid touching your eyes, nose, and mouth with unwashed hands. Avoid sharing personal household items You should not share dishes, drinking glasses, cups, eating utensils, towels, or bedding with other people or pets in your home. After using these items, they should be washed thoroughly with soap and water. Clean all high-touch surfaces everyday High touch surfaces include counters, tabletops, doorknobs, bathroom fixtures, toilets, phones, keyboards, tablets, and bedside tables. Also, clean any surfaces that may have blood, stool, or body fluids on them. Use a household cleaning spray or wipe, according to the label instructions. Labels contain instructions for safe and effective use of the cleaning product including precautions you should take when applying the product, such as wearing gloves and making sure you have good ventilation during use of the product. Monitor your symptoms Seek prompt medical attention if your illness is worsening (e.g., difficulty breathing).Beforeseeking care, call your healthcare provider and tell them that you have, or are being evaluated for, COVID-19. Put on a face mask before you enter the facility. These steps will help the healthcare providers office to keep other people in the office or waiting room from getting infected or exposed. Ask your healthcare provider to call the local or state health department. Persons who are placed under active monitoring or facilitated self- monitoring should follow instructions provided by their local health department or occupational health professionals, as appropriate. When working with your local health department check their available hours. If you have a medical emergency and need to call 911, notify the dispatch personnel that you have, or are being evaluated for COVID-19. If possible, put on a face mask before emergency medical services arrive. Discontinuing home isolation Patients with confirmed COVID-19 should remain under home isolation precautions until the risk of secondary transmission to others is thought to be low. The decision to discontinue home isolation precautions should be made on a [id number] basis, in consultation with healthcare providers and state and local health departments. Pending Studies at Discharge: No Stand-Alone Forms: My [facility], Smoking Cessation Medications and DC Order Prescriptions: Continued atorvastatin 10 mg tablet 10 mg PO HS lorazepam 0.5 mg tablet 0.25 - 0.5 mg PO BID PRN (Reason: Anxiety) hydrochlorothiazide 25 mg tablet 6.25 mg PO DAILY Label Comments: Rx Instructions: PER PT "WENT BACK TO THIS MED WHEN LISINOPRIL MADE ME FELT LIKE MY HEART WAS RACING". fexofenadine [Leticia Allergy] 180 mg Tablet 180 mg PO DAILY calcium carbonate-vitamin D3 [Calcium 500 + D] 500 mg(1,250mg) -200 unit Tablet 1 tab PO BID omega 9-lmc-scu-fish oil [Fish Oil] 1,000 mg (120 mg-180 mg) Capsule 1,000 mg PO DAILY omeprazole 40 mg capsule,delayed release(DR/EC) 40 mg PO DAILY Premarin 0.625 mg/gram cream 1 applic vaginal [id number] Changed lisinopril 2.5 mg tablet 2.5 mg PO DAILY Qty: 30 0RF Discontinued propranolol 60 mg capsule,extended release 24 hr 60 mg PO DAILY Discharge Orders: Discharge Order (Routine); Ordered 06/13/22 Ordered By: Amelie Tena Admission Data Admit Date/Time: 06/10/22 16:01 Attending Provider: Amelie Tena I. Admit Provider: Liz Hallman Primary Care Provider: Kassidy Pitt Other Providers: Liz Hallman Other Interventions: Discharge Summary Assessment (RN) Last Done: 06/13/22 13:31
== END 2022-06-13 14:40 | disposition home or self-care (01) | DRG 179 ==
LOC: ED 12:45 → SUATTDRO 16:01 → EDINP 16:01 → 2E 19:28